=== PATIENT | male | born 1990 | race Caucasian/White ===

== ENCOUNTER 2016-08-24 09:54 | Emergency (ER) | payer OTHER ==
--- NOTE | 2016-08-24 11:05 | ED NURSING NOTES ---
Clinical Report - Nurses [place] [address] [place] [address] 08/24/2016 9:56 [id number] Triage time 10:Aug 24 2016. Chief Complaint: INJURY TO LEFT HAND. INJURY TO THE LEFT LITTLE FINGER (lac). INJURY TO THE LEFT RING FINGER (lac). Alert. No acute distress. SEPSIS SCREEN: Sepsis Screen. Negative (no infection suspected/documented). WILBER COMA SCORE: [place] Coma Scale: 15- eyes open spontaneously (4); best verbal response- oriented x 4 (5); best motor response- obeys commands (6). --10:09 Ninfa Rogers R.N. 10:02 08/24/16. BP: 153/87. HR: 76. RR: 17. O2 saturation: 98% on room air. Temp: 98.4 F. Pain level now: 0/10. --10:09 Ninfa Rogers R.N. Weight: 204.1 kg stated. Height/Length: 75 inches Per Patient. BMI: 56.2. --10:05 Ninfa Rogers R.N. Medications None. --10:03 Ninfa Rogers R.N. Medication/allergy information source: the patient. --10:09 Ninfa Rogers R.N. Allergies None. --10:04 Ninfa Rogers R.N. History Arrived by private vehicle. Historian: patient. This occurred just prior to arrival. 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 PAST MEDICAL HX: Tetanus status: unknown. SOCIAL HX: Never smoker. Alcohol use; consumes beer occasionally. No drug use. No infectious disease exposure. ABUSE ASSESSMENT: No report of abuse. SELF HARM ASSESSMENT: A self harm assessment was performed. The patient answered "no" to the question "Do you have thoughts of harming or killing yourself?". FALL RISK ASSESSMENT: Fall risk assessment completed. No fall risk identified. NUTRITIONAL RISK ASSESSMENT: The nutritional risk assessment revealed no deficiencies. FUNCTIONAL ASSESSMENT: Functional assessment: no impairments noted. LEARNING NEEDS ASSESSMENT: The learning needs assessment revealed no barriers. SKIN INTEGRITY ASSESSMENT: Skin integrity risk assessment completed. No skin integrity risk identified. --10:09 Ninfa Rogers R.N. PROBLEMS: Asthma. --10:04 Ninfa Rogers R.N. ADDITIONAL SURGERIES: no known surgeries. Interventions ID band on patient. --10:09 Ninfa Rogers R.N. PHYSICAL ASSESSMENT Ambulatory to room. Patient gowned. GENERAL / NEURO / PSYCH: Oriented X 4. Alert. Appears in no acute distress. EXTREMITIES: Capillary refill is less than 2 seconds in the extremities. Extremity pulses are within normal limits. Extremities exhibit normal ROM. Neuro-vascular status intact to the extremity. Left hand: laceration (lac to little and ring fingers, cleansed). SKIN: Skin is warm and dry. --10:13 Ninfa Rogers R.N. NURSING PROGRESS NOTES Patient identifiers checked. Call light placed in reach. Side rails up x 1. Bed placed in lowest position. Brakes of bed on. Patient waiting for evaluation. --10:13 Ninfa Rogers R.N. 10:16 08/24/2016 TDAP IM 0.5 mL given. (Lot#: [id number], expiration date: 08/02/2018). --10:21 Ninfa Rogers R.N. 10:21 08/24/2016 Lidocaine Injection. (given to MD for suturing). --10:21 Ninfa Rogers R.N. ( MD at bedside). --10:30 Ninfa Rogers R.N. The patient has had no adverse reaction. --11:06 Ninfa Rogers R.N. 11:01 08/24/16. Wound cleansed with water and Betadine. WOUND REPAIR: Wound repair performed by ED physician. Preparation: suture tray set-up with 1% lidocaine. Wound cleansed per nurse. Procedure: wound repaired with sutures. Post-procedure: bleeding controlled, neuro-vascular status intact distal to wound and dressing applied. --11:21 Ninfa Rogers R.N. 11:06 08/24/2016 TDAP IM Response: no adverse reaction. --11:06 Ninfa Rogers R.N. DISPOSITION / DISCHARGE <<STRICKEN ENTRY-- Departure time: 10:33 Aug 24 2016. Reviewed medication(s) side effects, dosing and course information. Prescription(s) given to the patient. --10:34 Ninfa Rogers R.N. --END STRIKE>> Charted On Wrong Patient --10:35 Ninfa Rogers R.N. Condition at departure: improved. No learning barriers present. Discharge instructions provided and reviewed with the patient. Reviewed medication(s) (otc tylenol per MD). Work note given (given to pt written by MD 2 days no work,). Patient verbalized understanding. Written instructions provided in Irish. The patient was discharged by the physician. He was discharged home. He left the Emergency Department ambulatory and via private vehicle. Patient driving. ( pt educated if working to wear 2 pair of gloves until sutures removed and wound healed. pt also instructed on s/sx of infection. pt ambulatory to [facility] , bandages to suture sites placed by c/d/i). --11:23 Ninfa Rogers R.N. 11:19 08/24/16. BP: 141/76. HR: 72. RR: 15. O2 saturation: 100%. Temp: deferred. Pain level now: 0/10. --11:23 Ninfa Rogers R.N. Locked/Released at 08/24/2016 11:24 by Ninfa Rogers R.N.
--- NOTE | 2016-08-24 11:05 | ED ORDER SUMMARY ---
..... Patient: CHILO LEUNG OrderSheet [facility] VisitID: [id number] [place] [address] 25y, M Registration Date/Time: 08/24/2016 ORDER SHEET Weight: 204.1 kg (stated) Allergies: None GENERAL ORDERS: Irrigate Wounds (10:08/24/2016 Darlene Smith) (10:19 Mayeiln R.N.) Suture Set-up: (10:08/24/2016 Darlene Smith) (10:19 Mayelin R.N.) MEDICATION ORDERS: Lidocaine Injection 1% (NOW, place at bedside) (10:08/24/2016 Darlene Smith) (10:21 KPaJaren R.N.) Tdap IM 0.5 mL (NOW, per protocol) (10:08/24/2016 Mayelin R.N. per protocol) (10:21 KPaJaren R.N.) IV FLUIDS: ORDER SHEET NOTES: [Electronically signed by Ninfa Rogers R.N. (11:24 08/24/2016)] [Electronically signed by Silver Mccord Dr. (12:40 08/25/2016)] [Electronically locked/signed by Ninfa Rogers R.N. (11:24 08/24/2016)]
--- NOTE | 2016-08-24 11:05 | ED CLINICAL REPORT ---
Clinical Report - Physicians/Mid Levels [facility] [address] [place] [address] 08/24/2016 9:56 Patient: CHILO LEUNG Time Seen: 1010. Arrived- By private vehicle. Historian- patient. HISTORY OF PRESENT ILLNESS Chief Complaint: Injury to the left ring finger and left 5th (little) finger. The injury happened just prior to arrival. 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 Patient is experiencing mild pain. Patient denies injury to the head or neck. No other injury. REVIEW OF SYSTEMS The patient sustained a laceration. No swelling, tingling, weakness or foreign body. All systems otherwise negative, except as recorded above. PAST HISTORY See nurses notes. The patient's dominant hand is the right. Tetanus immunization status is unknown. Additional Surgeries: no known surgeries. Medications: None. Allergies: None. SOCIAL HISTORY Never smoker. No alcohol use or drug use. No recent travel. Is a local resident. ADDITIONAL NOTES The nursing notes have been reviewed. PHYSICAL EXAM Vital Signs: 08/24/2016 10:02 BP: 153/87. HR: 76. RR: 17. O2 saturation: 98%. Temp: 98.4 F. Pain level now: 0/10. Blood pressure normal. Oxygen saturation normal. Appearance: Alert. Oriented X3. No acute distress. Head: Head atraumatic. (normocephalic). Eyes: Pupils equal, round and reactive to light. Eyes normal inspection. CVS: Normal heart rate and rhythm. Heart sounds normal. Pulses normal. Respiratory: No respiratory distress. Breath sounds normal. Chest nontender. Abdomen: No visible injury. Soft and nontender. Bowel sounds normal. Skin: Skin warm and dry. Skin intact. Extremities: (patient with a 3 cm laceration to the tip of the left ring finger and another 1 cm laceration to the tip of the left little finger. No tendon involvement. No nail involvement. Subcutaneous tissue noted on examination. No active bleeding. Nnoted. Capillary refill less than 3 seconds. Sensation intact.). No tenderness in other areas. Extremities otherwise negative. Neuro, Vascular and Tendons: Vascular status intact. Sensation intact. Motor intact. Tendon function intact. Neuro: Oriented X 3. No motor deficit. No sensory deficit. PROGRESS AND PROCEDURES Laceration Repair: Location: left ring finger and left little finger. Wound depth/shape- subcutaneous. Distal neuro/vascular/tendon status normal. No sensory deficit, motor deficit or vascular deficit distally. No ligament injury. Local anesthesia provided using 1% lidocaine. Prepped with Hibiclens. Wound explored and examined to the base in bloodless field extensively with normal saline. Closure of skin: 4-0 (5 on ring 3 on little finger). Post-procedure: he is stable and there are no complications. Dressing consisting of Band-Aid was applied. Following the application of antibiotic ointment. Tetanus immunization given. Estimated blood loss: < 3 mL. ( patient tolerated well.). Course of Care: the patient is a pleasant 25-year-old male presenting for a vaginal laceration of the fingers. Patient is neurovascular intact. Bleeding is being controlled. Patient's tetanus will be updated here in the emergency department. informed verbal consent was obtained for the closure of the laceration. Please see procedure note for further details. Patient tolerated procedure well. No complications. I discussed with the patient is workup here in the emergency department including diagnosis, home care, follow-up, and return precautions including wound infection risk precautions. 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 L&I form has been filled out and return to the patient. Disposition: Discharged. Condition: good. CLINICAL IMPRESSION 08/24/2016 10:02 BP: 153/87. HR: 76. RR: 17. O2 saturation: 98%. Temp: 98.4 F. Pain level now: 0/10. Hypertensive. Oxygen saturation normal. Multiple deep lacerations to the left 4th toe and left 5th toe.No foreign body present or left toenail injury. Essential hypertension. INSTRUCTIONS (keep dry for 24 hours. wash with mild soap and warm water twice a day afterwards. sutures come out in 10 - 14 days.). Warnings: INFECTION: Watch for signs of infection (increasing heat and redness, pus-like drainage, swelling, or increased pain). Return or see your doctor if these signs occur. TETANUS: You were given a tetanus shot during your visit. Make a note for future reference. GENERAL WARNINGS: Return or contact your physician immediately if your condition worsens or changes unexpectedly, if not improving as expected, or if other problems arise. Specifically return if pain, vomiting, bleeding, breathing difficulty or fever. Your Current Medications: CONTINUE TAKING THE FOLLOWING MEDICATIONS: None*. OTC Medications: Acetaminophen (available over the counter): take according to label instructions. Motrin (available over the counter): take according to label instructions. Follow-up: Return to the emergency department as needed. Follow up with your doctor in one week. Reason for referral: recheck today's concerns. Summary of care provided to patient via paper. Screening today revealed the patient's blood pressure to be in the hypertensive range. The patient should follow up with a primary care provider for blood pressure management. Understanding of the discharge instructions verbalized by patient. Follow-up with: [facility], , , [address], , [place], [address] Follow up. Reason for referral: recheck today's concerns if you do not have a primary care doctor. Summary of care provided to patient via paper. (Electronically signed by Silver Mccord Dr. 08/25/2016 12:40)
--- NOTE | 2016-08-24 11:05 | ED ORDER SUMMARY ---
..... Patient: CHILO LEUNG OrderSheet [facility] VisitID: [id number] [place] [address] 25y, M Registration Date/Time: 08/24/2016 ORDER SHEET Weight: 204.1 kg (stated) Allergies: None GENERAL ORDERS: Irrigate Wounds (10:08/24/2016 Darlene Smith) (10:19 Mayelin R.N.) Suture Set-up: (10:08/24/2016 Darlene Smith) (10:19 Mayelin R.N.) MEDICATION ORDERS: Lidocaine Injection 1% (NOW, place at bedside) (10:08/24/2016 Darlene Smith) (10:21 KPaJaren R.N.) Tdap IM 0.5 mL (NOW, per protocol) (10:08/24/2016 Mayelin R.N. per protocol) (10:21 KPaJaren R.N.) IV FLUIDS: ORDER SHEET NOTES: [Electronically signed by Ninfa Rogers R.N. (11:24 08/24/2016)] [Electronically signed by Silver Mccord Dr. (12:40 08/25/2016)] [Electronically locked/signed by Ninfa Rogers R.N. (11:24 08/24/2016)]
--- NOTE | 2016-08-24 11:05 | ED CLINICAL REPORT ---
Clinical Report - Physicians/Mid Levels [facility] [address] [place] [address] 08/24/2016 9:56 Patient: CHILO LEUNG Time Seen: 1010. Arrived- By private vehicle. Historian- patient. HISTORY OF PRESENT ILLNESS Chief Complaint: Injury to the left ring finger and left 5th (little) finger. The injury happened just prior to arrival. 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 Patient is experiencing mild pain. Patient denies injury to the head or neck. No other injury. REVIEW OF SYSTEMS The patient sustained a laceration. No swelling, tingling, weakness or foreign body. All systems otherwise negative, except as recorded above. PAST HISTORY See nurses notes. The patient's dominant hand is the right. Tetanus immunization status is unknown. Additional Surgeries: no known surgeries. Medications: None. Allergies: None. SOCIAL HISTORY Never smoker. No alcohol use or drug use. No recent travel. Is a local resident. ADDITIONAL NOTES The nursing notes have been reviewed. PHYSICAL EXAM Vital Signs: 08/24/2016 10:02 BP: 153/87. HR: 76. RR: 17. O2 saturation: 98%. Temp: 98.4 F. Pain level now: 0/10. Blood pressure normal. Oxygen saturation normal. Appearance: Alert. Oriented X3. No acute distress. Head: Head atraumatic. (normocephalic). Eyes: Pupils equal, round and reactive to light. Eyes normal inspection. CVS: Normal heart rate and rhythm. Heart sounds normal. Pulses normal. Respiratory: No respiratory distress. Breath sounds normal. Chest nontender. Abdomen: No visible injury. Soft and nontender. Bowel sounds normal. Skin: Skin warm and dry. Skin intact. Extremities: (patient with a 3 cm laceration to the tip of the left ring finger and another 1 cm laceration to the tip of the left little finger. No tendon involvement. No nail involvement. Subcutaneous tissue noted on examination. No active bleeding. Nnoted. Capillary refill less than 3 seconds. Sensation intact.). No tenderness in other areas. Extremities otherwise negative. Neuro, Vascular and Tendons: Vascular status intact. Sensation intact. Motor intact. Tendon function intact. Neuro: Oriented X 3. No motor deficit. No sensory deficit. PROGRESS AND PROCEDURES Laceration Repair: Location: left ring finger and left little finger. Wound depth/shape- subcutaneous. Distal neuro/vascular/tendon status normal. No sensory deficit, motor deficit or vascular deficit distally. No ligament injury. Local anesthesia provided using 1% lidocaine. Prepped with Hibiclens. Wound explored and examined to the base in bloodless field extensively with normal saline. Closure of skin: 4-0 (5 on ring 3 on little finger). Post-procedure: he is stable and there are no complications. Dressing consisting of Band-Aid was applied. Following the application of antibiotic ointment. Tetanus immunization given. Estimated blood loss: < 3 mL. ( patient tolerated well.). Course of Care: the patient is a pleasant 25-year-old male presenting for a vaginal laceration of the fingers. Patient is neurovascular intact. Bleeding is being controlled. Patient's tetanus will be updated here in the emergency department. informed verbal consent was obtained for the closure of the laceration. Please see procedure note for further details. Patient tolerated procedure well. No complications. I discussed with the patient is workup here in the emergency department including diagnosis, home care, follow-up, and return precautions including wound infection risk precautions. 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 L&I form has been filled out and return to the patient. Disposition: Discharged. Condition: good. CLINICAL IMPRESSION 08/24/2016 10:02 BP: 153/87. HR: 76. RR: 17. O2 saturation: 98%. Temp: 98.4 F. Pain level now: 0/10. Hypertensive. Oxygen saturation normal. Multiple deep lacerations to the left 4th toe and left 5th toe.No foreign body present or left toenail injury. Essential hypertension. INSTRUCTIONS (keep dry for 24 hours. wash with mild soap and warm water twice a day afterwards. sutures come out in 10 - 14 days.). Warnings: INFECTION: Watch for signs of infection (increasing heat and redness, pus-like drainage, swelling, or increased pain). Return or see your doctor if these signs occur. TETANUS: You were given a tetanus shot during your visit. Make a note for future reference. GENERAL WARNINGS: Return or contact your physician immediately if your condition worsens or changes unexpectedly, if not improving as expected, or if other problems arise. Specifically return if pain, vomiting, bleeding, breathing difficulty or fever. Your Current Medications: CONTINUE TAKING THE FOLLOWING MEDICATIONS: None*. OTC Medications: Acetaminophen (available over the counter): take according to label instructions. Motrin (available over the counter): take according to label instructions. Follow-up: Return to the emergency department as needed. Follow up with your doctor in one week. Reason for referral: recheck today's concerns. Summary of care provided to patient via paper. Screening today revealed the patient's blood pressure to be in the hypertensive range. The patient should follow up with a primary care provider for blood pressure management. Understanding of the discharge instructions verbalized by patient. Follow-up with: [facility], , , [address], , [place], [id number] Follow up. Reason for referral: recheck today's concerns if you do not have a primary care doctor. Summary of care provided to patient via paper. (Electronically signed by Silver Mccord Dr. 08/25/2016 12:40)
--- NOTE | 2016-08-24 11:05 | ED NURSING NOTES ---
Clinical Report - Nurses [place] [address] [place] [address] 08/24/2016 9:56 [id number] Triage time 10:Aug 24 2016. Chief Complaint: INJURY TO LEFT HAND. INJURY TO THE LEFT LITTLE FINGER (lac). INJURY TO THE LEFT RING FINGER (lac). Alert. No acute distress. SEPSIS SCREEN: Sepsis Screen. Negative (no infection suspected/documented). WILBER COMA SCORE: [place] Coma Scale: 15- eyes open spontaneously (4); best verbal response- oriented x 4 (5); best motor response- obeys commands (6). --10:09 Ninfa Rogers R.N. 10:02 08/24/16. BP: 153/87. HR: 76. RR: 17. O2 saturation: 98% on room air. Temp: 98.4 F. Pain level now: 0/10. --10:09 Ninfa Rogers R.N. Weight: 204.1 kg stated. Height/Length: 75 inches Per Patient. BMI: 56.2. --10:05 Ninfa Rogers R.N. Medications None. --10:03 Ninfa Rogers R.N. Medication/allergy information source: the patient. --10:09 Ninfa Rogers R.N. Allergies None. --10:04 Ninfa Rogers R.N. History Arrived by private vehicle. Historian: patient. This occurred just prior to arrival. 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 PAST MEDICAL HX: Tetanus status: unknown. SOCIAL HX: Never smoker. Alcohol use; consumes beer occasionally. No drug use. No infectious disease exposure. ABUSE ASSESSMENT: No report of abuse. SELF HARM ASSESSMENT: A self harm assessment was performed. The patient answered "no" to the question "Do you have thoughts of harming or killing yourself?". FALL RISK ASSESSMENT: Fall risk assessment completed. No fall risk identified. NUTRITIONAL RISK ASSESSMENT: The nutritional risk assessment revealed no deficiencies. FUNCTIONAL ASSESSMENT: Functional assessment: no impairments noted. LEARNING NEEDS ASSESSMENT: The learning needs assessment revealed no barriers. SKIN INTEGRITY ASSESSMENT: Skin integrity risk assessment completed. No skin integrity risk identified. --10:09 Ninfa Rogers R.N. PROBLEMS: Asthma. --10:04 Ninfa Rogers R.N. ADDITIONAL SURGERIES: no known surgeries. Interventions ID band on patient. --10:09 Ninfa Rogers R.N. PHYSICAL ASSESSMENT Ambulatory to room. Patient gowned. GENERAL / NEURO / PSYCH: Oriented X 4. Alert. Appears in no acute distress. EXTREMITIES: Capillary refill is less than 2 seconds in the extremities. Extremity pulses are within normal limits. Extremities exhibit normal ROM. Neuro-vascular status intact to the extremity. Left hand: laceration (lac to little and ring fingers, cleansed). SKIN: Skin is warm and dry. --10:13 Ninfa Rogers R.N. NURSING PROGRESS NOTES Patient identifiers checked. Call light placed in reach. Side rails up x 1. Bed placed in lowest position. Brakes of bed on. Patient waiting for evaluation. --10:13 Ninfa Rogers R.N. 10:16 08/24/2016 TDAP IM 0.5 mL given. (Lot#: [id number], expiration date: 08/02/2018). --10:21 Ninfa Rogers R.N. 10:21 08/24/2016 Lidocaine Injection. (given to MD for suturing). --10:21 Ninfa Rogers R.N. ( MD at bedside). --10:30 Ninfa Rogers R.N. The patient has had no adverse reaction. --11:06 Ninfa Rogers R.N. 11:01 08/24/16. Wound cleansed with water and Betadine. WOUND REPAIR: Wound repair performed by ED physician. Preparation: suture tray set-up with 1% lidocaine. Wound cleansed per nurse. Procedure: wound repaired with sutures. Post-procedure: bleeding controlled, neuro-vascular status intact distal to wound and dressing applied. --11:21 Ninfa Rogers R.N. 11:06 08/24/2016 TDAP IM Response: no adverse reaction. --11:06 Ninfa Rogers R.N. DISPOSITION / DISCHARGE <<STRICKEN ENTRY-- Departure time: 10:33 Aug 24 2016. Reviewed medication(s) side effects, dosing and course information. Prescription(s) given to the patient. --10:34 Ninfa Rogers R.N. --END STRIKE>> Charted On Wrong Patient --10:35 Ninfa Rogers R.N. Condition at departure: improved. No learning barriers present. Discharge instructions provided and reviewed with the patient. Reviewed medication(s) (otc tylenol per MD). Work note given (given to pt written by MD 2 days no work,). Patient verbalized understanding. Written instructions provided in Divehi. The patient was discharged by the physician. He was discharged home. He left the Emergency Department ambulatory and via private vehicle. Patient driving. ( pt educated if working to wear 2 pair of gloves until sutures removed and wound healed. pt also instructed on s/sx of infection. pt ambulatory to [facility] , bandages to suture sites placed by c/d/i). --11:23 Ninfa Rogers R.N. 11:19 08/24/16. BP: 141/76. HR: 72. RR: 15. O2 saturation: 100%. Temp: deferred. Pain level now: 0/10. --11:23 Ninfa Rogers R.N. Locked/Released at 08/24/2016 11:24 by Ninfa Rogers R.N.
--- NOTE | 2016-08-25 12:40 | ED MAR SUMMARY ---
..... Medication Administration Record [facility] [address] [place] [address] Patient: CHILO LEUNG Visit ID: [id number] 25y, M Weight: 204.1 kg Height/Length: 75 in BMI: 56.2 ALLERGIES: None Given 10:16 08/24/2016 Ninfa Rogers, RMonaNMona Medication Administered: TDAP [IM], Dose: 0.5 mL IM. Medication Ordered: Tdap IM 0.5 mL (NOW, per protocol). Given 10:21 08/24/2016 Ninfa Rogers, R.N. Medication Administered: LIDOCAINE [INJECTION], Dose: Injection. Medication Ordered: Lidocaine Injection 1% (NOW, place at bedside).
--- NOTE | 2016-08-25 12:40 | ED MED RECONCILIATION SUMMARY ---
Patient: CHILO LEUNG Medication Reconciliation Report [facility] VisitID: [id number] [address] [place] [address] 25y, M Registration Date/Time: 08/24/2016 Weight: 204.1 kg Height/Length: 75 in. BMI: 56.2 ALLERGIES: None The patient's Home Medications are listed below: NONE. The source(s) of the original Home Medication information: patient The following Medications were given to the patient in the Emergency Department: Lidocaine [Injection] Injection, administered: 08/24/2016 10:21:00 AM TDAP [IM] IM 0.5 mL, administered: 08/24/2016 10:16:00 AM The following Medications were prescribed to the patient: Acetaminophen (available over the counter): take according to label instructions. -- Silver Mccord Dr. Motrin (available over the counter): take according to label instructions. -- Silver Mccord Dr.
--- NOTE | 2016-08-25 12:40 | ED DISCHARGE INSTRUCTIONS ---
Patient: CHILO LEUNG General Instructions [facility] VisitID: [id number] [address] [place] [address] 25y, M Registration Date/Time: 08/24/2016 08/24/2016 10:02 BP: 153/87. HR: 76. RR: 17. O2 saturation: 98%. Temp: 98.4 F. Pain level now: 0/10. Hypertensive. Oxygen saturation normal. Multiple deep lacerations to the left 4th toe and left 5th toe.No foreign body present or left toenail injury. Essential hypertension. INSTRUCTIONS (keep dry for 24 hours. wash with mild soap and warm water twice a day afterwards. sutures come out in 10 - 14 days.). Warnings: INFECTION: Watch for signs of infection (increasing heat and redness, pus-like drainage, swelling, or increased pain). Return or see your doctor if these signs occur. TETANUS: You were given a tetanus shot during your visit. Make a note for future reference. GENERAL WARNINGS: Return or contact your physician immediately if your condition worsens or changes unexpectedly, if not improving as expected, or if other problems arise. Specifically return if pain, vomiting, bleeding, breathing difficulty or fever. Your Current Medications: CONTINUE TAKING THE FOLLOWING MEDICATIONS: None*. OTC Medications: Acetaminophen (available over the counter): take according to label instructions. Motrin (available over the counter): take according to label instructions. Follow-up: Return to the emergency department as needed. Follow up with your doctor in one week. Reason for referral: recheck today's concerns. Summary of care provided to patient via paper. Screening today revealed the patient's blood pressure to be in the hypertensive range. The patient should follow up with a primary care provider for blood pressure management. Understanding of the discharge instructions verbalized by patient. Follow-up with: [facility], , , [address], [place], [address] Follow up. Reason for referral: recheck today's concerns if you do not have a primary care doctor. Summary of care provided to patient via paper. ADDITIONAL INFORMATION Laceration (All Closures) Alaceration is a cut through the skin. This will usually require stitches (sutures) or annie if it is deep. Minor cuts may be treated with a surgical tape closure orskin glue. Home care The following guidelines will help you care for your laceration at home: Extremity, face, or trunk wounds Keep the wound clean and dry. If a bandage was applied and it becomes wet or dirty, replace it. Otherwise, leave it in place for the first 24 hours. If stitches or annie were used, clean the wound daily. After removing the bandage, wash the area with soap and water. Use a wet cotton swab to loosen and remove any blood or crust that forms. The doctor may prescribe an antibiotic cream or ointment to prevent infection. Do not stop taking this medication until you have finished the prescribed course or the doctor tells you to stop. The doctor may also prescribe medications for pain. Follow the doctors instructions for taking these medications. You may remove the bandage to shower as usual after the first 24 hours, but do not soak the area in water (no swimming) until the stitches or annie are removed. If surgical tape was used, keep the area clean and dry. If it becomes wet, blot it dry with a towel. If skin glue was used, do not scratch, rub, or pick at the adhesive film. Do not place tape directly over the film. Do not apply liquid, ointment, or creams to the wound while the film is in place. Do not clean the wound with peroxide and do not apply ointments. Avoid activities that cause heavy sweating until the film has fallen off. Protect the wound from prolonged exposure to sunlight or tanning lamps. You may shower as usual but do not soak the wound in water (no baths or swimming). The film will fall off by itself in 510 days. Scalp wounds During the first two days, you may carefully rinse your hair in the shower to remove blood, glass or dirt particles. After two days, you may shower and shampoo your hair normally. Do not soak your scalp in the tub or go swimming until the stitches or annie have been removed. Talk with your doctor before applying any antibiotic ointment to the wound. Mouth wounds Eat soft foods to reduce pain. If the cut is inside of your mouth, clean by rinsing after each meal and at bedtime with a mixture of equal parts water and hydrogen peroxide (do not swallow!). Or, you can use a cotton swab to directly apply hydrogen peroxide onto the cut. Mouth wounds can be painful when eating. You may use an [id number] local numbing solution for pain relief. If this is not available, you may use any numbing solution for teething babies. You may apply this directly to the sores with a cotton-tip swab or with your finger. Follow-up care Follow up with your health care provider. Most skin wounds heal within ten days. Mouth and facial wounds heal within five days. However, even with proper treatment, a wound infection may sometimes occur. Therefore, you should check the wound daily for signs of infection listed below. Stitches should be removed from the face within five days; stitches and annie should be removed from other parts of the body within 714 days. If dissolving stitches were used in the mouth, these will fall out or dissolve without the need for removal. If tape closures were used, remove them yourself if they have not fallen off after 7 days. Ifskin glue was used, the film will fall off by itself in 510 days. When to seek medical care Get prompt medical attention if any of these occur: Bleeding not controlled by direct pressure Signs of infection, including increasing pain in the wound, increasing wound redness or swelling, or pus coming from the wound Fever of 100.4F (38C) or higher, or as directed by your health care provider Stitches or annie come apart or fall out or surgical tape falls off before 7 days Wound edges re-open High Blood Pressure -- To Be Confirmed [No Tx] Your blood pressure was higher today than normal. Sometimes anxiety or pain can cause a temporary rise in blood pressure that later returns to normal. If your blood pressure is high on one measurement, this does not mean that you have hypertension (a chronic illness). However, you must have your blood pressure measured again within the next few days to find out if its still high. A normal blood pressure is 120/80 or less. The first (top) number is the "systolic" pressure. The second (bottom) number is the "diastolic" pressure. Hypertension exists when either the top number is 140 or higher, OR the bottom number is 90 or higher on repeated measurements. Blood pressure in the range of 120-140 (systolic) or 80-89 (diastolic) is considered "pre-hypertension". This means your are at risk for getting hypertension. You should have regular blood pressure checks to be sure your blood pressure is not rising. Home Care: Measure your blood pressure on 3 different days and write down the results. This can be done at your doctor's office or this facility. Some pharmacies and grocery stores offer automated blood pressure machines for your use. Follow Up: If your blood pressure is "high" (over 120/80) on 2 out of 3 days, you will need to follow up with your doctor for further evaluation and treatment. DO NOT PUT THIS OFF! Untreated high blood pressure increases the risk for heart attack, also known as acute myocardial infarction, or AMI, and stroke. It is a treatable condition. Get Prompt Medical Attention if any of the following occur: Chest pain or shortness of breath Severe headache Throbbing or rushing sound in the ears Nosebleed Sudden severe abdominal pain Extreme drowsiness, confusion or fainting Dizziness or vertigo (dizziness with spinning sensation) Weakness of an arm or leg or one side of the face Difficulty with speech or vision You have been given the following additional information: Laceration, All Hypertension, To Be Confirmed (Electronically signed by Silver Mccord Dr. 08/25/2016 12:40)
--- NOTE | 2016-08-25 12:40 | ED MED RECONCILIATION SUMMARY ---
Patient: CHILO LEUNG Medication Reconciliation Report [facility] VisitID: [id number] [address] [place] [address] 25y, M Registration Date/Time: 08/24/2016 Weight: 204.1 kg Height/Length: 75 in. BMI: 56.2 ALLERGIES: None The patient's Home Medications are listed below: NONE. The source(s) of the original Home Medication information: patient The following Medications were given to the patient in the Emergency Department: Lidocaine [Injection] Injection, administered: 08/24/2016 10:21:00 AM TDAP [IM] IM 0.5 mL, administered: 08/24/2016 10:16:00 AM The following Medications were prescribed to the patient: Acetaminophen (available over the counter): take according to label instructions. -- Silver Mcocrd Dr. Motrin (available over the counter): take according to label instructions. -- Silver Mccord Dr.
--- NOTE | 2016-08-25 12:40 | ED MAR SUMMARY ---
..... Medication Administration Record [facility] [address] [place] [address] Patient: CHILO LEUNG Visit ID: [id number] 25y, M Weight: 204.1 kg Height/Length: 75 in BMI: 56.2 ALLERGIES: None Given 10:16 08/24/2016 Ninfa Rogers, RMonaNMona Medication Administered: TDAP [IM], Dose: 0.5 mL IM. Medication Ordered: Tdap IM 0.5 mL (NOW, per protocol). Given 10:21 08/24/2016 Ninfa Rogers, R.N. Medication Administered: LIDOCAINE [INJECTION], Dose: Injection. Medication Ordered: Lidocaine Injection 1% (NOW, place at bedside).
== END 2016-08-24 11:14 | disposition home or self-care (01) ==
LOC: ED SRH 09:54
DX: S61.215A Laceration without foreign body of left ring finger without damage to nail, initial encounter (principal); S61.217A Laceration without foreign body of left little finger without damage to nail, initial encounter; I10 Essential (primary) hypertension; W26.0XXA Contact with knife, initial encounter; Y93.89 Activity, other specified; Y99.0 Civilian activity done for income or pay; Y92.89 Other specified places as the place of occurrence of the external cause